=== PATIENT | female | born 1995 | race Caucasian/White ===

== ENCOUNTER 2018-07-13 21:14 | Emergency (ER) | payer MEDICAID ==
[~2018-07-13] VITALS: Ht 165.1 cm; Wt 86.2 kg
[2018-07-13] MEDS ORDERED: BIRTH CONTROL (21:27)
--- NOTE | 2018-07-13 21:42 | NUR ---
Dr. Kuhn at bedside for MSE.
[2018-07-13] MEDS ORDERED: ASPIRIN 81 MG TAB.CHEW PO ONE (22:00)
[2018-07-13] MEDS ORDERED: ASPIRIN 81 MG TAB.CHEW ONE (22:02)
[2018-07-13 22:03] LABS: BASOPHILS % (AUTO) 0.4 % (0.0-2.0); EOSINOPHILS # (AUTO) 0.1 K/uL (0.0-0.7); EOSINOPHILS % (AUTO) 0.9 % (0.0-7.0); HEMATOCRIT 44.6 % (31.2-41.9); HEMOGLOBIN 15.5 g/dL (10.9-14.3); LYMPHOCYTES # (AUTO) 2.2 K/uL (20.0-40.0); LYMPHOCYTES % (AUTO) 28.6 % (20.5-51.5); MEAN CORPUSCULAR HEMOGLOBIN 30.4 uug (24.7-32.8); MEAN CORPUSCULAR HGB CONC 35 g/dL (32.3-35.6); MEAN CORPUSCULAR VOLUME 87.6 fL (75.5-95.3); MONOCYTES # (AUTO) 0.4 K/uL (2.0-10.0); MONOCYTES % (AUTO) 5.1 % (0.0-11.0); NEUTROPHILS # (AUTO) 4.9 K/uL (1.8-8.9); PLATELET COUNT (AUTO) 316 K/uL (179-408); RED BLOOD CELL COUNT(AUTO) 5.09 MIL/uL (3.63-4.92); WHITE BLOOD COUNT (AUTO) 7.6 K/uL (3.8-11.8)
[2018-07-13 22:12] LABS: CREATININE 0.7 mg/dL (0.6-1.3); POTASSIUM 3.6 mmol/L (3.5-5.1)
[2018-07-13 22:24] LABS: BILIRUBIN,DIRECT 0.1 mg/dL (0.0-0.2); BILIRUBIN,TOTAL 0.3 mg/dL (0.2-1.0); TOTAL PROTEIN, SERUM 8.2 g/dL (6.4-8.2)
--- NOTE | 2018-07-14 01:39 | NUR ---
Patient discharged to home in stable conditon. Written and verbal after care instructions given. Patient verbalizes understanding of instructions. Pt ambulated out of ER with steady gait, no acute signs of distress, VSS, all belongings taken, IV site discontinued.
[2018-07-14 01:40] VITALS: BP 105/63
== END 2018-07-14 01:40 | disposition home or self-care (01) ==
LOC: ER 21:14
DX: R07.9 Chest pain, unspecified (principal); R06.00 Dyspnea, unspecified; F41.9 Anxiety disorder, unspecified; Z79.3 Long term (current) use of hormonal contraceptives
CPT/HCPCS: 36415; 70030-TC; 71045; 85025; 93005; A4663

== ENCOUNTER 2018-10-05 13:17 | Emergency (ER) | payer MEDICAID ==
[~2018-10-05] VITALS: Ht 165.1 cm; Wt 86.2 kg
[~2018-10-05 13:17] MED LIST: BIRTH CONTROL
--- NOTE | 2018-10-05 13:30 | NUR ---
Patient walked into ER c/o intermitten non radiating CP with SOB [id number]. Patient states symptoms started when she increase her control dose
[2018-10-05 15:03] LABS: BASOPHILS % (AUTO) 0.5 % (0.0-2.0); EOSINOPHILS % (AUTO) 0.5 % (0.0-7.0); HEMATOCRIT 40.2 % (31.2-41.9); HEMOGLOBIN 13.8 g/dL (10.9-14.3); LYMPHOCYTES # (AUTO) 1.3 K/uL (20.0-40.0); LYMPHOCYTES % (AUTO) 15.5 % (20.5-51.5); MEAN CORPUSCULAR HEMOGLOBIN 29.9 uug (24.7-32.8); MEAN CORPUSCULAR HGB CONC 34 g/dL (32.3-35.6); MEAN CORPUSCULAR VOLUME 87.5 fL (75.5-95.3); MONOCYTES # (AUTO) 0.3 K/uL (2.0-10.0); MONOCYTES % (AUTO) 3.8 % (0.0-11.0); NEUTROPHILS # (AUTO) 6.9 K/uL (1.8-8.9); NEUTROPHILS % (AUTO) 79.7 % (38.5-71.5); PLATELET COUNT (AUTO) 317 K/uL (179-408); WHITE BLOOD COUNT (AUTO) 8.6 K/uL (3.8-11.8)
[2018-10-05 15:08] LABS: CREATININE 0.6 mg/dL (0.6-1.3); POTASSIUM 3.9 mmol/L (3.5-5.1)
[2018-10-05 15:26] LABS: BILIRUBIN,DIRECT 0.1 mg/dL (0.0-0.2); BILIRUBIN,TOTAL 0.3 mg/dL (0.2-1.0); TOTAL PROTEIN, SERUM 7.7 g/dL (6.4-8.2)
[2018-10-05] MEDS ORDERED: IV NORMAL SALINE 1000 ML BAG IV ONE (15:45)
[2018-10-05] MEDS ORDERED: IV NORMAL SALINE 250 ML IV ONE (15:50)
[2018-10-05] MEDS ORDERED: IOHEXOL 350 100 ML INFUS..BTL ONE (15:50)
[2018-10-05] MEDS ORDERED: SWABABLE VALVE TRANSFER SET EA MC ONE (15:50)
--- NOTE | 2018-10-05 17:15 | NUR ---
IV removed. Catheter intact and site benign. Pressure and 4x4 gauze applied to site. No bleeding noted.
--- NOTE | 2018-10-05 17:19 | NUR ---
Patient discharged to home in stable conditon with family taking patient home. Written and verbal after care instructions given. Patient verbalizes understanding of instructions. Walked out of ER with no distress noted
[2018-10-05 17:20] VITALS: BP 121/66
== END 2018-10-05 17:21 | disposition home or self-care (01) ==
LOC: ER 13:17
DX: R07.89 Other chest pain (principal); F41.9 Anxiety disorder, unspecified; Z79.3 Long term (current) use of hormonal contraceptives
CPT/HCPCS: 36415; 71275; 80048; 80076; 84484; 84702; 85025; 85379; 85730; 93005; 99284; Q9967; 70030-TC; A4663; J7030; J7050

== ENCOUNTER 2020-05-07 20:23 | Emergency (ER) | payer MEDICAID ==
[~2020-05-07] VITALS: Ht 162.6 cm; Wt 86.2 kg
--- NOTE | 2020-05-07 21:31 | NUR ---
CHAPERONED MD WITH EXAMINATION.
[2020-05-07] MEDS ORDERED: CLOT15CR36 TP (21:57)
[2020-05-07] MEDS ORDERED: FLUCONAZOLE 100 MG TABLET PO ONE (22:00)
--- NOTE | 2020-05-07 22:00 | NUR ---
Patient is sitting upright on bed, does not appear to be in acute distress.
[2020-05-07] MEDS ORDERED: FLUCONAZOLE 100 MG TABLET ONE (22:04)
[2020-05-07 22:20] VITALS: BP 123/70
--- NOTE | 2020-05-07 22:20 | NUR ---
Patient discharged to home in stable condition. Written and verbal after care instructions given. Patient verbalizes understanding of instructions. Stressed follow up or return to ER for worsening s/s. Patient ambulates with steady gait, received Rx, left with all personal belongings.
== END 2020-05-07 22:20 | disposition home or self-care (01) ==
LOC: ER 20:25
DX: R21 Rash and other nonspecific skin eruption (principal)
CPT/HCPCS: A4663